=== PATIENT | female | born 1970 | race Caucasian/White ===

== ENCOUNTER 2020-11-07 16:57 | Outpatient (REF) | payer OTHER, SELFPAY ==
--- NOTE | ~2020-11-07 | XR_ITS ---
EXAMINATION: XR ELBOW, LEFT CLINICAL INFORMATION: Bursopathy, unspecified COMPARISON: None TECHNIQUE: AP, lateral, and oblique views of the left elbow. FINDINGS: The bones are normal. No fracture or joint effusion. Alignment is anatomic. Joint spaces are maintained. There is soft tissue swelling posteriorly in the elbow which would be compatible with a fluid-filled bursa. XR/XR elbow LT min 3V IMPRESSION: Normal elbow joint. Soft tissue density posteriorly most likely fluid-filled bursa.
== END 2020-11-07 16:58 | disposition home or self-care (01) ==
LOC: HO.HMGCX 16:57
PROVIDERS: PCP Internal Medicine; Visit Provider Nurse Practitioner Family
DX: M71.9 Bursopathy, unspecified (principal)
CPT/HCPCS: 73080

== ENCOUNTER → 2020-11-28 10:06 | Outpatient (BNVA) | payer OTHER, SELFPAY | PROVIDERS: PCP Internal Medicine; Visit Provider Physician Assistant ==

== ENCOUNTER 2021-11-13 11:39 | Outpatient (REF) | payer OTHER, SELFPAY ==
[2021-11-16 05:26] LABS: HPV mRNA E6/E7 rflx Not Detected (Not Detected)
== END 2021-11-13 11:40 | disposition home or self-care (01) ==
LOC: HO.LAB 11:39
PROVIDERS: PCP Internal Medicine; Visit Provider Obstetrics & Gynecology
DX: Z01.419 Encounter for gynecological examination (general) (routine) without abnormal findings (principal); Z11.51 Encounter for screening for human papillomavirus (HPV)
CPT/HCPCS: 87624; 88142

== ENCOUNTER 2021-11-21 08:32 | Outpatient (REF) | payer OTHER, SELFPAY ==
--- NOTE | ~2021-11-21 | MM_ITS ---
EXAMINATION: MM SCREENING DIGITAL BREAST TOMOSYNTHESIS, BILATERAL CLINICAL INFORMATION: Screening. Asymptomatic. The lifetime risk of breast cancer based on the Tyrer-Cuzick Model is 10.1%. COMPARISON: Mammography: 02/28/2018 and studies dating back to 2012. TECHNIQUE: Digital mammography is performed in craniocaudal and mediolateral oblique views along with computer-aided detection (CAD). Digital breast tomosynthesis is performed in implant-displaced craniocaudal and implant-displaced mediolateral oblique views along with computer-aided detection (CAD). Synthesized 2D images are generated from the tomosynthesis. FINDINGS: The breasts are extremely dense, which lowers the sensitivity of mammography (ACR BI-RADS breast composition Category d). There is stable parenchymal pattern of the left breast with region of scarring adjacent to the skin anteriorly. About the anterior superior retroareolar region there is a region of architectural distortion for which spot compression views and possible ultrasound is recommended. MM/MM tomosynthesis screen imp BI IMPRESSION: Right breast density for further evaluation. Subpectoral implants seen bilaterally without remarkable findings. ASSESSMENT: BI-RADS 0: Incomplete - Need Additional Imaging Evaluation RECOMMENDATION: 1. Additional views of the right breast. 2. Targeted ultrasound if warranted after review of the additional views. 3. Radiology department staff will contact the patient for additional imaging. This patient's information was entered into a reminder system with a target due date for their next mammogram.
== END 2021-11-21 08:33 | disposition home or self-care (01) ==
LOC: HO.MAMMO 08:32
PROVIDERS: Visit Provider Obstetrics & Gynecology
DX: Z12.31 Encounter for screening mammogram for malignant neoplasm of breast (principal)
CPT/HCPCS: 77063; 77067

== ENCOUNTER 2021-12-10 08:58 | Outpatient (REF) | payer OTHER, SELFPAY ==
--- NOTE | ~2021-12-10 | MM_ITS ---
EXAMINATION: MM DIAGNOSTIC DIGITAL BREAST TOMOSYNTHESIS, RIGHT CLINICAL INFORMATION: Recall from screening for question of architectural changes anterior right breast. COMPARISON: Mammography: 11/21/2021, outside mammography 02/28/2018, 08/23/2015 ([facility]). TECHNIQUE: Digital breast tomosynthesis is performed. 2D images are generated from the tomosynthesis. The following views are obtained: Implant displaced spot CC, implant displaced spot MLO x2. FINDINGS: The breasts are heterogeneously dense, which may obscure small masses (ACR BI-RADS breast composition Category c). The additional views show no architectural abnormality. There is no interval mass or developing density. No significant changes. Results are discussed with the patient at time of visit. MM/MM tomosynthesis added views R IMPRESSION: Additional views show no architectural abnormality or significant change from prior studies. ASSESSMENT: BI-RADS 1: Negative RECOMMENDATION: Routine annual mammography screening. This patient's information was entered into a reminder system with a target due date for their next mammogram.
== END 2021-12-10 08:59 | disposition home or self-care (01) ==
LOC: HO.MAMMO 08:58
PROVIDERS: PCP Internal Medicine; Visit Provider Internal Medicine
DX: N64.89 Other specified disorders of breast (principal)
CPT/HCPCS: 77061; 77065

== ENCOUNTER 2022-07-24 11:51 | Day surgery (SDC) | payer OTHER, SELFPAY ==
[2022-07-17 12:46] VITALS: BMI 21.8
--- NOTE | 2022-07-23 13:51 | HO.ANESPROP2 ---
Documented by User: Soo Bermudez NP 07/23/22 13:52 HPI - Anesthesia Eval Consult details Narrative: 51yo F for Colonoscopy PMFSH Active Problems Active Problems: All Active Problems (Updated 07/17/22 @ 12:37 by Kalli Olvera RN) Bursitis (Acute) Well woman exam (Acute) Physical exam (Acute) Candidal vulvovaginitis (Acute) Carpal tunnel syndrome (Acute) Asthma (Acute) Past Medical History Medical History Asthma Carpal tunnel syndrome Hemorrhage History of skin cancer Surgical History Surgical History History of hysterectomy Hx of breast augmentation Hx of tonsillectomy Social History Social History Housing: Condominium Patient Tobacco Use Status: Never used Tobacco e-Cigarette/Vaping Use: Never Used Second Hand Smoke Exposure: No Use of substances other than those prescribed or required for medical reasons: No Are you DNR?: No Advance Directives: No Advance Directives Information Provided: Yes service: No Current occupational status: employed Current occupation: Stay at home mom Cognitive needs: No Hearing needs: No Vision needs: No Meds Allergies Allergy/AdvReac Type Severity Reaction Status Date / Time seafood Allergy Severe Anaphylaxis Verified 07/17/22 10:35 shellfish derived Allergy Severe Anaphylaxis Verified 07/17/22 10:35 latex [LATEX] Allergy Mild RASH Verified 03/05/22 10:04 Home Medications Medication Instructions Recorded Confirmed Last Taken Type albuterol sulfate 90 mcg/actuation 1 - 2 puff inhalation Q4H PRN 11/07/20 03/05/22 Unknown History aerosol inhaler wheezing progesterone micronized 200 mg 200 mg PO BEDTIME 11/13/21 03/05/22 Unknown History capsule Exam Exam Date and Time: July 23, 2022 135 Height,Weight and Vital Signs: Height 5 ft 9 in Weight 67.132 kg Assessment and Plan Assessment Anesthesia Assessment: Chart Reviewed Documented by User: Julianna Ackerman MD 07/24/22 14:18 [facility] Active Problems Active Problems: All Active Problems (Updated 07/17/22 @ 12:37 by Kalli Olvera RN) Bursitis (Acute) Well woman exam (Acute) Physical exam (Acute) Candidal vulvovaginitis (Acute) Carpal tunnel syndrome (Acute) Asthma (Acute). Inhalers prn H/o post- hemorrhage 5 years ago. Placenta accreta Past Medical History Medical History Asthma Carpal tunnel syndrome Hemorrhage History of skin cancer Family History Family history of problems with anesthesia: No Surgical History Surgical History History of hysterectomy Hx of breast augmentation Hx of tonsillectomy History of Problems with Anesthesia: No Social History Social History Housing: Condominium Patient Tobacco Use Status: Never used Tobacco e-Cigarette/Vaping Use: Never Used Second Hand Smoke Exposure: No Use of substances other than those prescribed or required for medical reasons: No Are you DNR?: No Advance Directives: No Advance Directives Information Provided: Yes service: No Current occupational status: employed Current occupation: Stay at home mom Cognitive needs: No Hearing needs: No Vision needs: No Meds Allergies Allergy/AdvReac Type Severity Reaction Status Date / Time seafood Allergy Severe Anaphylaxis Verified 07/17/22 10:35 shellfish derived Allergy Severe Anaphylaxis Verified 07/17/22 10:35 latex [LATEX] Allergy Mild RASH Verified 03/05/22 10:04 Home Medications Medication Instructions Recorded Confirmed Last Taken Type albuterol sulfate 90 mcg/actuation 1 - 2 puff inhalation Q4H PRN 11/07/20 03/05/22 Unknown History aerosol inhaler wheezing progesterone micronized 200 mg 200 mg PO BEDTIME 11/13/21 03/05/22 Unknown History capsule Exam Height,Weight and Vital Signs: Height 5 ft 9 in Weight 67.132 kg Vital Signs Temp Pulse Resp BP Pulse Ox O2 Del Method 07/24/22 12:59 98.2 F 63 18 105/75 98 Room Air Airway Mallampati Class: II TM Dist: >3cm Neck ROM: Full Loose/Missing/Broken Teeth: No (Caps intact) Heart: RRR Lungs: CTAB Assessment and Plan Assessment Anesthesia Assessment: Anesthesia Plan Discussed Final Anesthetic Review Family History of Problems with Anesthesia: No History of Problems with Anesthesia: No NPO: Yes ASA Class: II Final Preanesthetic Review: No Changes in Pt Med Stat, Meds/Allgs Chart Reviewed, Consent Obtained/Reviewed and Anes Risks/Benef Reviewed Patient Risk: Low Procedure Risk: Low Assessment/Block/Sedation in SS: Assess/Block/Sedation-SS Anesthetic Plan Anesthetic Plan: MAC: Disposition: Standard PACU
[2022-07-24 12:59] VITALS: BP 105/75; PULSE 63; RESP 18; TEMP 36.8; O2SAT 98; BMI 21.4
[2022-07-24 13:02] VITALS: BMI 21.4
[2022-07-24] MEDS: Lactated Ringers 1,000 ML 100 ML IVCONT (13:15)
--- NOTE | 2022-07-24 14:18 | MHC.SHP ---
Pre-Procedural Eval Section A Date of Service: 07/24/22 Section B Chief Complaint: screening Details of Present Illness: 51 y.o F with no GI complaints here for screening colonoscopy Relevant Family History (Specify if Yes): No Present Medications: see Short Stay Collaborative assessment Medical History: Significant History (Hx of melanoma, asthma, carpal tunnel syndrome ) History of Previous Operations: Relevant previous surgery/procedure and date(s) ( History of hysterectomy Hx of breast augmentation Hx of tonsillectomy) Allergies: Allergies Allergy/AdvReac Type Severity Reaction Status Date / Time seafood Allergy Severe Anaphylaxis Verified 07/17/22 10:35 shellfish derived Allergy Severe Anaphylaxis Verified 07/17/22 10:35 latex [LATEX] Allergy Mild RASH Verified 03/05/22 10:04 Review of Systems Review of Systems Comment: 10 point ROS negative except as mentioned above Exam Exam Comment: Gen appear: No acute distress, well nourished HEENT: no icterus, no cervical lymphadenopathy Chest: No overt resp distress Abd: soft, nontender, nondistended Psych: Stable affect, answering questions appropriately Neuro: A/Ox3 noted to move all extremities spontaneously Ext: no peripheral edema Plan Diagnosis/Plan: Unchanged I have reviewed the history and physical and performed a pertinent physical examination on my patient. No changes have occurred unless specified.
--- NOTE | 2022-07-24 14:29 | P.OP_ITS ---
Operative Note Operative Note Date of Service: 07/24/22 Narrative: Procedure: Colonoscopy Indication: Screening Endoscopist: Emelia Osorio MD Anesthesia Provider: Anai Canela CRNA Anesthesia type: MAC Instrument: Olympus [id number]-[id number] Consent: Indication, risks vs benefits, and alternatives were discussed with the patient who gave written informed consent to proceed. EKG, pulse, pulse oximetry and blood pressure were monitored throughout the procedure. Please see anesthesia flowsheet. Procedure: The patient was brought to the procedure room and placed in the left lateral decubitus position. IV medications were administered by the anesthesia provider in attendance. A digital rectal exam was performed which was normal. The colonoscope was then inserted through the anus and advanced through the colon to the cecum at 75 cm,and terminal ileum. Mucosa was carefully examined under high definition white light as the instrument was slowly withdrawn in a retrograde panoramic fashion. Retroflexion was performed in ascending colon and rectum. The procedure was not difficult. There were no immediate obvious complications. The quality of the prep was BBPS: 2+3+3 = adequate Withdrawal time 8 minutes. Limitations: No limitations. Findings: Mucosa: Normal to cecum and terminal ileum. Protruding lesions: * Medium internal hemorrhoids without stigmata of recent bleeding. Impression: 1. Normal colon and terminal ileum mucosa 3. Hemorrhoids Recommendations: - Repeat colonoscopy in 10 years for CRC screening - Increase fiber. Sitz bath.
[2022-07-24 15:16] VITALS: BP 90/47; PULSE 72; RESP 16; TEMP 36.2; O2SAT 98
[2022-07-24 15:31] VITALS: BP 92/63; PULSE 75; RESP 16; O2SAT 98
[2022-07-24 15:46] VITALS: BP 103/65; PULSE 75; RESP 16; TEMP 36.3; O2SAT 98
== END 2022-07-24 16:12 | disposition home or self-care (01) ==
PROVIDERS: PCP Internal Medicine; Visit Provider Internal Medicine
PROC: 0DJD8ZZ Inspection of Lower Intestinal Tract, Via Natural or Artificial Opening Endoscopic (ICD-10-PCS; CPT 45378; principal; 2022-07-24 13:20)
DX: Z12.11 Encounter for screening for malignant neoplasm of colon (principal); K64.8 Other hemorrhoids; J45.909 Unspecified asthma, uncomplicated; Z85.820 Personal history of malignant melanoma of skin; Z79.899 Other long term (current) drug therapy; Z91.040 Latex allergy status; Z98.890 Other specified postprocedural states
CPT/HCPCS: 45378; J2250

== ENCOUNTER → 2023-01-06 15:36 | Outpatient (BNVA) | payer OTHER, SELFPAY | PROVIDERS: PCP Internal Medicine; Visit Provider Obstetrics & Gynecology | DX: Z13.89 Encounter for screening for other disorder (principal) ==

== ENCOUNTER 2023-02-15 08:28 | Outpatient (REF) | payer OTHER, SELFPAY ==
--- NOTE | ~2023-02-15 | MM_ITS ---
EXAMINATION: MM SCREENING DIGITAL BREAST TOMOSYNTHESIS, BILATERAL CLINICAL INFORMATION: Screening. Asymptomatic. The lifetime risk of breast cancer based on the Tyrer-Cuzick Model is 12%. COMPARISON: Mammography: 12/10/2021, 11/21/2021; outside exam 02/28/2018 ([facility]). TECHNIQUE: Digital mammography is performed in craniocaudal and mediolateral oblique views along with computer-aided detection (CAD). Digital breast tomosynthesis is performed in implant-displaced craniocaudal and implant-displaced mediolateral oblique views along with computer-aided detection (CAD). Synthesized 2D images are generated from the tomosynthesis. FINDINGS: The breasts are heterogeneously dense, which may obscure small masses (ACR BI-RADS breast composition Category c). There are bilateral implants. The implant contours are smooth and similar to prior studies. There are no significant masses, abnormal calcifications, or other abnormalities. There are scattered small benign similar round calcifications central lower breasts again noted. The axilla and skin contours are unremarkable. There are no significant changes. MM/MM tomosynthesis screen imp BI IMPRESSION: No mammographic evidence of malignancy. ASSESSMENT: BI-RADS 2: Benign RECOMMENDATION: Routine annual mammography screening. This patient's information was entered into a reminder system with a target due date for their next mammogram.
== END 2023-02-15 08:29 | disposition home or self-care (01) ==
LOC: HO.MAMMO 08:28
PROVIDERS: PCP Internal Medicine; Visit Provider Obstetrics & Gynecology
DX: Z12.31 Encounter for screening mammogram for malignant neoplasm of breast (principal)
CPT/HCPCS: 77063; 77067

== ENCOUNTER 2023-08-31 14:23 | Outpatient (AMB) | payer OTHER, SELFPAY ==
--- NOTE | 2023-08-31 14:23 | A.OFFPC_ITS ---
Vital Signs 08/31/23 14:24 Height 5 ft 9 in Weight 158 lb BMI 23.3 BP 90/62 Blood Pressure Location Lt brachial Position Sitting Pulse 64 Pulse Source Pulse Oximeter Pulse Oximetry (%) 96 Oxygen Delivery Method Room Air Intake [facility] Type Technician Required: No Allergies seafood Allergy (Severe, Verified 08/31/23 14:27) Anaphylaxis shellfish derived Allergy (Severe, Verified 08/31/23 14:27) Anaphylaxis latex [LATEX] Allergy (Mild, Verified 08/31/23 14:27) RASH Tobacco use date assessed: 08/31/[address] [facility] Details went to [place] for right calf pain; had an US which purportedly showed superficial phleb; started on blood thinners but not taking now COUNT INCLUDES THE [facility] Medical History Asthma Carpal tunnel syndrome Hemorrhage History of skin cancer Surgical History History of hysterectomy Hx of breast augmentation Hx of tonsillectomy Social History Housing: Condominium Patient Tobacco Use Status: Never used Tobacco e-Cigarette/Vaping Use: Never Used Second Hand Smoke Exposure: No service: No Current occupational status: employed Current occupation: Stay at home mom Cognitive needs: No Hearing needs: No Vision needs: No Female Reproductive History Menstrual Age of Menarche: 10 Questionnaire Thrive Questionnaire Date Thrive assessed: 08/31/23 I am a: Patient What is your living situation today?: I have a steady place to live Within the past 12 months, did the food you bought not last and you didn't have the money to get more?: Never true Within the past 12 months, did you worry whether your food would run out before you got money to buy more?: Never true Do you have trouble paying for medicines?: No Do you have trouble getting transportation to medical appointments?: No Do you have trouble paying your heating and electricity bill?: No Do you have trouble taking care of your child, family member or friend?: No Do you have trouble with day-to-day activities such as bathing, preparing meals, shopping, managing finances, etc.?: No Are you currently unemployed and looking for a job?: No Are you interested in more education?: No AUDIT C Alcohol Use Questionnaire (AUDIT-C) 1. How often do you have a drink containing alcohol?: Never Total Score: 0 Score Reviewed/Action Taken: Yes ALFREDO-7 AMB Questionnaire ALFREDO-7 Date ALFREDO - 7 assessed: 11/20/21 Source: Developed by Drs. Terrance Varner, Pat Rodriguez, Steve Telles and colleagues, with an educational valerio from [employer]. Review of Systems Const Denies chills, Denies headache(s) and Denies weight loss ENT Denies headache(s) Card Denies chest pain, Denies syncope, Denies irregular heart rhythm and Denies dyspnea Resp Denies chest congestion, Denies cough and Denies dyspnea GI Denies abdominal pain, Denies change in stool character, Denies nausea and Denies vomiting Musc Denies deformity and Denies joint swelling Neuro Denies syncope and Denies headache(s) Physical exam (Primary Care) Vital Signs: Last Vital Signs Pulse 64 08/31/23 14:24 BP 90/62 08/31/23 14:24 Pulse Ox 96 08/31/23 14:24 Oxygen Delivery Method Room Air 08/31/23 14:24 BMI result Body Mass Index 23.3 Tobacco/Smoking Status: Tobacco use Status Tobacco use date assessed 08/31/23 08/31/23 14:26 Patient Tobacco Use Status Never used Tobacco 08/31/23 14:26 e-Cigarette/Vaping Use Never Used 08/31/23 14:26 Thrive Assessment: Date of Thrive Assessment Date Thrive assessed 08/31/23 08/31/23 14:26 Const General: cooperative, comfortable, no acute distress and alert Neck Neck: Yes no lymphadenopathy Thyroid: Thyroid normal Resp Effort & Inspection: normal respiratory effort Auscultation: clear to auscultation bilaterally Percussion: percussion normal Cardio Jugular venous distension: no JVD Palpation: normal PMI Rate: regular rate Rhythm: regular rhythm Heart sounds: S1 normal heart sound present and S2 normal heart sound present GI Inspection: Yes normal to inspection Palpation (GI): No hepatosplenomegaly present Skin General skin exam: no rashes or lesions noted Extrem General: Yes no clubbing, cyanosis or edema Assessment and Plan Assessment & Plan (1) Thrombophlebitis: Code(s): I80.9 - Phlebitis and thrombophlebitis of unspecified site Plan: will repeat US; if no dvt blood thinners won't be needed Orders: Orders US venous duplex LE RT 08/31/23 I80.9 - Phlebitis and thrombophlebitis of unspecified site Medications: New azithromycin take 500 mg today (day 1), then 250 mg for 4 days (days 2-5) PO 6 tabs 0RF Coding Level of Care Code Est Pt Level 3 (82618) Diagnoses Thrombophlebitis I80.9
[2023-08-31 14:24] VITALS: BP 90/62; PULSE 64; O2SAT 96; BMI 23.3
== END 2023-08-31 15:19 | disposition home or self-care (01) ==
PROVIDERS: PCP Internal Medicine; Visit Provider Internal Medicine
DX: I80.9 Phlebitis and thrombophlebitis of unspecified site (principal)
CPT/HCPCS: 99213

== ENCOUNTER 2023-08-31 15:17 | Outpatient (REF) | payer OTHER, SELFPAY ==
--- NOTE | ~2023-08-31 | US_ITS ---
EXAMINATION: US VENOUS ULTRASOUND WITH DOPPLER LOWER EXTREMITY, RIGHT CLINICAL INFORMATION: Phlebitis and thrombophlebitis of unspecified site COMPARISON: None available. TECHNIQUE: Ultrasound of the deep veins is performed from the hip to the calf with compression sonography and color and pulse Doppler assessment. Spectral analysis with color-flow imaging is performed. FINDINGS: There is normal venous compression and respiratory variation. The visualized common femoral vein, superficial femoral vein, profunda femoral vein, popliteal vein, and peroneal and posterior tibial veins show no evidence of deep venous thrombosis. The contralateral common femoral vein demonstrates normal respiratory variation. US/US venous duplex LE RT IMPRESSION: No DVT demonstrated in the right lower extremity.
== END 2023-08-31 15:18 | disposition home or self-care (01) ==
LOC: HO.HMGCX 15:17
PROVIDERS: PCP Internal Medicine; Visit Provider Internal Medicine
DX: I80.9 Phlebitis and thrombophlebitis of unspecified site (principal)
CPT/HCPCS: 93971

== ENCOUNTER 2023-11-12 14:02 | Outpatient (AMB) | payer OTHER, SELFPAY ==
[2023-11-12 14:03] VITALS: BP 90/66; BMI 23.5
--- NOTE | 2023-11-12 14:03 | MHC.PC.OV ---
Vital Signs 11/12/23 14:03 Height 5 ft 9 in Weight 159 lb BMI 23.5 BP 90/66 Blood Pressure Location Lt brachial Position Sitting Pulse Source Pulse Oximeter Oxygen Delivery Method Room Air Intake Visit Reasons: memory loss Public Information Specialist Required: No Fuel Operator: Not Required per policy Accompanied by: Self / Same As Patient Allergies seafood Allergy (Severe, Verified 11/12/23 14:04) Anaphylaxis shellfish derived Allergy (Severe, Verified 11/12/23 14:04) Anaphylaxis latex [LATEX] Allergy (Mild, Verified 11/12/23 14:04) RASH Medication List - Last Reconciled 11/15/23 by Arash Chandra MD albuterol sulfate 90 mcg/actuation 1 - 2 puffs inhalation Q4H PRN progesterone micronized 200 mg PO BEDTIME Tobacco use date assessed: 11/12/23 Dental Screening Dental Screen Date: 11/12/23 Did you have a dental visit in the last 12 months?: Yes Did you have a dental problem in the last 6 months where you did not have access to dental care?: No Was dental information given to patient?: Patient has dentist HPI memory loss HPI Details had an episode where she was amnesic for a few hours and family boticed she was not acting herself; a month ago hit her head; no loc or sz activity PFSH Medical History Asthma Carpal tunnel syndrome Hemorrhage History of skin cancer Surgical History History of hysterectomy Hx of breast augmentation Hx of tonsillectomy Social History Housing: Condominium Patient Tobacco Use Status: Never used Tobacco e-Cigarette/Vaping Use: Never Used Second Hand Smoke Exposure: No service: No Current occupational status: employed Current occupation: Stay at home mom Cognitive needs: No Hearing needs: No Vision needs: No Female Reproductive History Menstrual Age of Menarche: 10 Questionnaire PHQ-9 Over the last 2 weeks, how often have you been bothered by any of the following problems? 1. Little interest or pleasure in doing things: not at all 2. Feeling down, depressed, or hopeless: not at all 3. Trouble falling or staying asleep, or sleeping too much: not at all 4. Feeling tired or having little energy: not at all 5. Poor appetite or overeating: not at all 6. Feeling bad about yourself - or that you are a failure or have let yourself or your family down: not at all 7. Trouble concentrating on things, such as reading the newspaper or watching television: not at all 8. Moving or speaking so slowly that other people could have noticed. Or the opposite - being so fidgety or restless that you have been moving around a lot more than usual: not at all 9. Thoughts that you would be better off or of hurting yourself in some way: not at all Total score: 0 Depression Screening Interpretation: Negative Depression Screening Done: Yes [id number] - PHQ-9 Billing: Yes Source: Developed by Drs. Terrance Varner, Pat Rodriguez, Steve Telles and colleagues, with an educational valerio from [employer]. Thrive Questionnaire Date Thrive assessed: 11/12/23 I am a: Patient What is your living situation today?: I have a steady place to live Within the past 12 months, did the food you bought not last and you didn't have the money to get more?: Never true Within the past 12 months, did you worry whether your food would run out before you got money to buy more?: Never true Do you have trouble paying for medicines?: No Do you have trouble getting transportation to medical appointments?: No Do you have trouble paying your heating and electricity bill?: No Do you have trouble taking care of your child, family member or friend?: No Do you have trouble with day-to-day activities such as bathing, preparing meals, shopping, managing finances, etc.?: No Are you currently unemployed and looking for a job?: No Are you interested in more education?: No Please select the resources that you would like help with: None THRIVE Score: 0 AUDIT C Alcohol Use Questionnaire (AUDIT-C) 1. How often do you have a drink containing alcohol?: Never Total Score: 0 Score Reviewed/Action Taken: Yes ALFREDO-7 AMB Questionnaire ALFREDO-7 Date ALFREDO - 7 assessed: 11/12/23 Feeling nervous, anxious, or on edge: 0 = Not at all Not being able to stop or control worryin = Not at all Worrying too much about different things: 0 = Not at all Trouble relaxin = Not at all Being so restless that it is hard to sit still: 0 = Not at all Becoming easily annoyed or irritable: 0 = Not at all Feeling afraid as if something awful might happen: 0 = Not at all Total ALFREDO-7 score (0-4 normal; 5-9 mild; 10-14 moderate; 15-21 severe): 0 Source: Developed by Drs. Terrance Varner, Pat Rodriguez, Steve Telles and colleagues, with an educational valerio from [employer]. Review of Systems Const Denies chills, Denies headache(s) and Denies weight loss ENT Denies headache(s) Card Denies chest pain, Denies syncope, Denies irregular heart rhythm and Denies dyspnea Resp Denies chest congestion, Denies cough and Denies dyspnea GI Denies abdominal pain, Denies change in stool character, Denies nausea and Denies vomiting Musc Denies deformity and Denies joint swelling Neuro Denies syncope and Denies headache(s) Physical exam (Primary Care) Vital Signs: Last Vital Signs BP 90/66 11/12/23 14:03 Oxygen Delivery Method Room Air 11/12/23 14:03 BMI result Body Mass Index 23.5 Tobacco/Smoking Status: Tobacco use Status Tobacco use date assessed 11/12/23 11/12/23 14:05 Patient Tobacco Use Status Never used Tobacco 11/12/23 14:05 e-Cigarette/Vaping Use Never Used 11/12/23 14:05 PHQ-9: PHQ-9 Score PHQ-9: Total score 0 11/12/23 14:36 Depression Screening Interpretation: Negative Thrive Assessment: Date of Thrive Assessment Date Thrive assessed 11/12/23 11/12/23 14:05 Const General: cooperative, comfortable, no acute distress and alert Neck Neck: Yes no lymphadenopathy Thyroid: Thyroid normal Resp Effort & Inspection: normal respiratory effort Auscultation: clear to auscultation bilaterally Percussion: percussion normal Cardio Jugular venous distension: no JVD Palpation: normal PMI Rate: regular rate Rhythm: regular rhythm Heart sounds: S1 normal heart sound present and S2 normal heart sound present GI Inspection: Yes normal to inspection Palpation (GI): No hepatosplenomegaly present Skin General skin exam: no rashes or lesions noted Neuro Other: PERRLA; reflexes nl Extrem General: Yes no clubbing, cyanosis or edema Assessment and Plan Assessment & Plan (1) Head injury: Code(s): S09.90XA - Unspecified injury of head, initial encounter Plan: labs and head ct Orders: Orders Lipid Panel 11/12/23 E78.5 - Hyperlipidemia, unspecified Thyroid Stimulating Hormone 11/12/23 E03.9 - Hypothyroidism, unspecified Complete Blood Count Auto Diff 11/12/23 D64.9 - Anemia, unspecified Comprehensive [place]. Panel Fast 11/12/23 N28.9 - Disorder of kidney and ureter, unspecified CT head/brain wo IV con 11/12/23 S09.90XA - Unspecified injury of head, initial encounter Coding Level of Care Code Est Pt Level 3 (21158) Diagnoses Head injury S09.90XA
== END 2023-11-12 14:37 | disposition home or self-care (01) ==
PROVIDERS: PCP Internal Medicine; Visit Provider Internal Medicine
DX: S09.90XA Unspecified injury of head, initial encounter (principal)
CPT/HCPCS: 99213

== ENCOUNTER 2023-12-02 07:53 | Outpatient (REF) | payer OTHER, SELFPAY ==
--- NOTE | ~2023-12-02 | CT_ITS ---
EXAMINATION: CT HEAD WITHOUT CONTRAST CLINICAL INFORMATION: Blunt head trauma without loss of consciousness, significant head injury and posttraumatic headache. COMPARISON: None available. TECHNIQUE: Contiguous axial imaging was performed from the skull base to vertex without intravenous administration of contrast. This CT examination was performed using dose optimization techniques as appropriate, variously including the following: *Automated exposure control *Adjustment of mA and/or kV according to patient size (this includes techniques or standardized protocols for targeted exams where dose is matched to indication/reason for exam; i.e. extremities or head) *Use of iterative reconstruction technique DLP: 751.33 mGy-cm FINDINGS: Ventricles, sulci and cisterns are normal. There is no midline shift, no abnormal intra- or extra- axial fluid accumulation. Newman and white matter differentiation is normal. Bone window images show no evidence of skull fracture. CT/CT head/brain wo IV con IMPRESSION: 1. Normal CT scan of the brain. 2. No intracranial hemorrhage or skull fracture is seen. 3. No evidence of space occupying lesion could be found. 4. The current plain CT scan of the brain shows no diagnostic evidence of acute cerebral infarction.
== END 2023-12-02 07:54 | disposition home or self-care (01) ==
LOC: HO.CT 07:53
PROVIDERS: PCP Internal Medicine; Visit Provider Internal Medicine
DX: S09.90XA Unspecified injury of head, initial encounter (principal)
CPT/HCPCS: 70450

== ENCOUNTER 2024-02-25 08:57 | Outpatient (REF) | payer OTHER, SELFPAY ==
--- NOTE | ~2024-02-25 | MM_ITS ---
EXAMINATION: MM SCREENING DIGITAL BREAST TOMOSYNTHESIS, BILATERAL WITH BREAST IMPLANTS CLINICAL INFORMATION: Screening. Asymptomatic. COMPARISON: Mammography: This study is compared with prior mammograms dated back to 2018. TECHNIQUE: Digital mammography is performed in craniocaudal and mediolateral oblique views along with computer-aided detection (CAD). Digital breast tomosynthesis is performed in implant-displaced craniocaudal and implant-displaced mediolateral oblique views along with computer-aided detection (CAD). Synthesized 2D images are generated from the tomosynthesis. FINDINGS: The breasts are extremely dense, which lowers the sensitivity of mammography (ACR BI-RADS breast composition Category d). There are bilateral,mammographically intact, retropectoral silicone breast implants. There are no significant masses, abnormal calcifications, or other abnormalities. MM/MM tomosynthesis screen imp BI IMPRESSION: There are no significant changes from prior study. ASSESSMENT: BI-RADS BI-RADS 1 - Negative RECOMMENDATION: Routine annual mammography screening. 1 year F/U This patient's information was entered into a reminder system with a target due date for their next mammogram.
== END 2024-02-25 08:58 | disposition home or self-care (01) ==
LOC: HO.MAMMO 08:57
PROVIDERS: PCP Internal Medicine; Visit Provider Internal Medicine
DX: Z12.31 Encounter for screening mammogram for malignant neoplasm of breast (principal)
CPT/HCPCS: 77063; 77067

== ENCOUNTER → 2024-02-25 09:00 | Outpatient (BNV) | payer OTHER, SELFPAY | PROVIDERS: PCP Internal Medicine; Visit Provider Radiology Diagnostic Radiology | DX: Z12.31 Encounter for screening mammogram for malignant neoplasm of breast (principal) | CPT/HCPCS: 77063; 77067 ==

== ENCOUNTER 2024-03-02 11:08 | Outpatient (AMB) | payer OTHER, SELFPAY ==
[2024-03-02 11:16] VITALS: BP 100/58; BMI 22.5
--- NOTE | 2024-03-02 11:16 | A.OFFVIS_ITS ---
Vital Signs 03/02/24 11:16 Height 5 ft 9 in Weight 152 lb 6 oz BMI 22.5 BP 100/58 L Blood Pressure Location Lt brachial Position Sitting Intake Visit Reasons: [employer]OR annual exam/DO NOT RS Allergies seafood Allergy (Severe, Verified 03/02/24 11:23) Anaphylaxis shellfish derived Allergy (Severe, Verified 03/02/24 11:23) Anaphylaxis latex [LATEX] Allergy (Mild, Verified 03/02/24 11:23) RASH HPI Comments Details: Presenting for annual exam. No complaints. Last Pap/HPV was negative in 11/25 Last Mammogram was done in 02/25/2024, the report is still pending Last Colonoscopy was in 07/28, the recommendation was to repeat in 10 years [facility] Medical History Carpal tunnel syndrome Asthma Hemorrhage History of skin cancer Surgical History History of hysterectomy Hx of breast augmentation Hx of tonsillectomy Social History Housing: Condominium Patient Tobacco Use Status: Never used Tobacco e-Cigarette/Vaping Use: Never Used Second Hand Smoke Exposure: No service: No Current occupational status: employed Current occupation: Stay at home mom Cognitive needs: No Hearing needs: No Vision needs: No Female Reproductive History Menstrual Age of Menarche: 10 control method: none Total pregnancies: 6 Full term: 4 Ab spontaneous: 2 Date of last pap smear: 11/14/21 History of abnormal pap smear: Yes (20 years ago) History of STI: No Date of Mammogram: 02/25/24 History of abnormal mammogram: No Review of Systems Const All systems reviewed & are unremarkable except as noted in HPI and below Card Reports as per HPI and Reports no additional complaints Resp Reports as per HPI and Reports no additional complaints GI Reports as per HPI and Reports no additional complaints Reports as per HPI Physical Exam Const General: cooperative, healthy appearing and comfortable General: Yes bladder normal to palpation External Female Exam: No lesion Speculum Exam - Vagina: normal appearance of the vagina, normal vaginal discharge and not erythematous Speculum Exam - Cervix: Cervix absent Bimanual exam- vagina & uterus: bladder normal to palpation and uterus absent Bimanual Exam- Adnexa, other: Other (No masses detected) Assessment & Plan Assessment & Plan (1) Well woman exam: Code(s): Z01.419 - Encounter for gynecological examination (general) (routine) without abnormal findings Category: Medical Plan: Cotesting not indicated this year. Instructions given the patient to schedule next screening Mammogram in 02/28. Counseled the patient about the recommended dietary allowance of 1000 mg of Calcium & 600 IU of vitamin D. The patient was instructed to perform monthly self-breast exams and to schedule an annual exam in a year; All questions answered and the patient verbalized understanding. Instructed the patient to schedule annual exam in a year Coding Level of Care Code Est Pt Prev Care 40-64y(99392) Diagnoses Well woman exam Z01.419
== END 2024-03-02 12:01 | disposition home or self-care (01) ==
PROVIDERS: Visit Provider Obstetrics & Gynecology
DX: Z01.419 Encounter for gynecological examination (general) (routine) without abnormal findings (principal)
CPT/HCPCS: 99396

== ENCOUNTER → 2024-03-02 11:08 | Outpatient (BNVA) | payer OTHER, SELFPAY | PROVIDERS: Visit Provider Obstetrics & Gynecology ==